=== PATIENT | female | born 1935 | race Two or more races ===

== ENCOUNTER 2025-03-05 20:52 | Inpatient (IN) | payer MEDICARE, OTHER ==
[~2025-03-05] VITALS: Ht 160 cm; Wt 81.7 kg
--- NOTE | 2025-03-05 21:25 | ECG ---
[facility] Test Date: 2025-03-05 Test Time: 21:17:19 Pat Name: MUNA CORONA Department: Room: 0219T Gender: F Pewter Finisher: FABY : 1935 Requested By: LUDIVINA QUILES Order Number: [id number] Reading MD: Crow Meyers Measurements Intervals [place] Rate: 71 P: -47 CT: 180 QRS: 13 QRSD: 106 T: 44 QT: 414 QTc: 450 Interpretive Statements Sinus or ectopic atrial rhythm Multiple premature complexes, vent & supraven Electronically Signed On 03-07-2025 15:26:54 PST by Crow Meyers Please click the below link to view image of tracing.
--- NOTE | 2025-03-05 21:40 | ED.PDOC ---
History of Present Illness HPI Comments 89 y/o obese F presents with son for c/c of left eye vision change. Patient reports on eating dinner and sitting down when she, suddenly, began seeing lavender with lighting-shape patterns in the lower peripheral vision of her left eye for several minutes. Upon arrival to ED, patient comments on symptoms sub siding. No history of similar symptoms in the past. She is asymptomatic at this time. Chief Complaint: Eye Problem Time Seen by MD: 21:30 Reviewed Notes: Nurses Notes, Medications, Allergies Information Source: Patient, Relative (Child) Mode of Arrival: Ambulatory Severity: Moderate Timing: Hours Duration: Minutes Prehospital treatment: None Past Medical History Past Medical History (Other): polymyalgia rheumatica Surgical History: Denies all surgeries POND TENDER History: Denies all POND TENDER Hx Social History Smoker: Non-Smoker Alcohol: Denies ETOH Use Drugs: Denies Drug Use Lives In: Home All Other Systems: Reviewed and Negative (Comprehensive systems review obtained and negative except for what is stated in the HPI.) Physical Exam General Appearance: No Apparent Distress, Obese HEENT: Normal ENT Inspection, Pharynx Normal, TMs Normal Neck: Full Range of Motion, Non-Tender, Normal, Normal Inspection Respiratory: Chest Non-Tender, Lungs Clear, No Accessory Muscle Use, No Respiratory Distress, Normal Breath Sounds Cardiovascular: No Edema, No JVD, No Murmur, No Gallop, Normal Peripheral Pulses, Regular Rate/Rhythm Breast Exam: Deferred Gastrointestinal: No Organomegaly, Non Tender, No Pulsatile Mass, Normal Bowel Sounds, Soft Genitalia: Deferred Pelvic: Deferred Rectal: Deferred Extremities: No calf tenderness, Normal capillary refill, Normal inspection, Normal range of motion, Non-tender, No pedal edema Musculoskeletal : Apperance: Normal Neurologic: Alert, honey processor II-XII nml as Tested, No Motor Deficits, Normal Affect, Normal Mood, No Sensory Deficits Cerebellar Function: Normal Reflexes: Normal Skin: Dry, Normal Color, Warm Lymphatic: No Adenopathy Was a procedure done? Was a procedure done?: No EKG EKG : Pulse Rate (adult): 71 [place]: Normal Cardiac Rhythm: NSR Block: None Hypertrophy: None ST: Normal Differential Dx Considerations may include: TIA, retinal detachment, retinal artery occlusion, retinal vein occlusion, migraine with stroke symptoms, atypical seizures, brain aneurysm, brain mass, intracranial bleed X-Ray, Labs, Meds, VS Vital Signs Date Time Temp Pulse Resp B/P (MAP) Pulse Ox O2 Delivery O2 Flow Rate FiO2 03/05/25 21:40 71 03/05/25 21:17 71 03/05/25 20:55 97.7 75 18 201/101 97 97.7 Lab Test 03/05/25 22:30 03/05/25 21:42 Range/Units Troponin I High Sensitivity 8 6 </=34 ng/L White Blood Count 6.7 4.4-10.8 10^3/uL Red Blood Count 4.57 4.0-5.20 10^6/uL Hemoglobin 14.1 12.2-16.2 g/dL Hematocrit 41.1 36.0-46.0 % Mean Corpuscular Volume 90.0 80.0-100.0 fL Mean Corpuscular Hemoglobin 30.8 28.0-32.0 pg Mean Corpuscular Hemoglobin Concent 34.3 32.0-36.0 g/dL Red Cell Distribution Width 13.3 11.8-14.3 % Platelet Count 256 140-450 10^3/uL Mean Platelet Volume 7.5 6.9-10.8 fL Neutrophils (%) (Auto) 57.7 37.0-80.0 % Lymphocytes (%) (Auto) 34.5 10.0-50.0 % Monocytes (%) (Auto) 6.2 0.0-12.0 % Eosinophils (%) (Auto) 0.9 0.0-7.0 % Basophils (%) (Auto) 0.7 0.0-2.0 % Neutrophils # (Auto) 3.8 1.6-8.6 10 ^3/uL Lymphocytes # (Auto) 2.3 0.4-5.4 10 ^3/uL Monocytes # (Auto) 0.4 0-1.3 10 ^3/uL Eosinophils # (Auto) 0.1 0-0.8 10 ^3/uL Basophils # (Auto) 0 0-0.2 10 ^3/uL Nucleated Red Blood Cells 0.0 % Sodium Level 142 136-145 mmol/L Potassium Level 3.4 L 3.5-5.1 mmol/L Chloride Level 104 98-107 mmol/L Carbon Dioxide Level 30 20-31 mmol/L Anion Gap 8 5-15 Blood Urea Nitrogen 9 9-23 mg/dL Creatinine 0.89 0.550-1.02 mg/dL Glomerular Filtration Rate Calc 62 >90 mL/min BUN/Creatinine Ratio 10.1 10.0-20.0 Serum Glucose 92 74-106 mg/dL Calcium Level 9.6 8.7-10.4 mg/dL [facility] [id number] [place] [id number] Ph: [phone] DIAGNOSTIC IMAGING Diagnostic Imaging Report : [id number] Signed PATIENT: MUNA CORONA ACCT: [id number] UNIT: [id number] : 1935 LOC: ER ROOM / BED: / AGE / SEX: 89 / F ADM STATUS: REG ER SERVICE 31 ORDERING PHYSICIAN: LUDIVINA QUILES MD PROCEDURE(s): HWOCT - HEAD WITHOUT CONTRAST REASON: tia ORDER NUMBER(s): [id number], ACCESSION NUMBER(s): [id number] EXAM: CT HEAD WITHOUT CONTRAST INDICATION: tia TECHNIQUE: CT of the head without intravenous contrast. Radiation Dose Information: CT Dose: CTDI volume is 48.66 mGy. Dose-length product is 778.54 mGy*cm The dose indicators for CT are the volume Computed Tomography (CT) Dose Index (CTDIvol) and the Dose Length Product (DLP), and are measured in units of mGy and mGy-cm, respectively. These indicators are not patient dose, but values generated from the CT scanner acquisition factors. The report includes radiation exposure data for exposures received during this examination. COMPARISON: MR BRAIN W/O on DOS: 02/20/24 FINDINGS: There is no evidence of acute intracranial hemorrhage, extra-axial collection, mass effect, midline shift, herniation or hydrocephalus. The ventricles, sulci and cisterns are age appropriate. The brandt-white differentiation is intact. Patchy periventricular and subcortical white matter hypoattenuation is nonspecific but may be related to small vessel ischemic disease. The visualized paranasal sinuses and mastoid air cells are clear. The surrounding soft tissues and osseous structures are unremarkable. IMPRESSION: No acute intracranial abnormality. ATED BY: TRISHA MONTENEGRO MD DICTATED DATE/TIME: 03/05/252212 SIGNED BY: TRISHA MONTEENGRO MD SIGNED DATE/TIME: 03/05/252212 CC: [place] [id number] Ph: [phone] DIAGNOSTIC IMAGING Diagnostic Imaging Report : [id number] Signed PATIENT: MUNA CORONA ACCT: [id number] UNIT: [id number] : 1935 LOC: ER ROOM / BED: / AGE / SEX: 89 / F ADM STATUS: REG ER SERVICE 31 ORDERING PHYSICIAN: LUDIVINA QUILES MD PROCEDURE(s): CXR1 - CHEST XRAY 1 VIEW REASON: tia ORDER NUMBER(s): [id number], ACCESSION NUMBER(s): [id number] CHEST RADIOGRAPH INDICATION: tia TECHNIQUE: Single frontal view of the chest was obtained COMPARISON: CR CHEST 2 VIEW on DOS: 07/02/23 FINDINGS: Lungs and pleural spaces are clear. Cardiac silhouette and sherly are within lc l limits. Bones and soft tissues demonstrate no significant abnormality. IMPRESSION: No acute disease. ATED BY: TRISHA MONTENEGRO MD DICTATED DATE/TIME: 03/05/252213 SIGNED BY: TRISHA MONTENEGRO MD SIGNED DATE/TIME: 03/05/252213 CC: Time of 1ST Reevaluation: 22:00 Reevaluation 1ST: Resolved Time of 2ND Reevaluation: 23:06 Reevaluation 2ND: Resolved Patient Education/Counseling: Diagnosis, Treatment, Prognosis, Need For Follow Up Family Education/Counseling: Diagnosis, Treatment, Prognosis, Need For Follow Up Comments This is a patient who presents with a momentary and transient visual disturbance of the left eye involving visual field defect and color change. Bedtime she presented her symptoms had completely resolved her cardiac workup in stroke workup were negative. The examination of the eye shows no evidence of hyphema no evidence of cranial nerve abnormalities. I have less suspicion for retinal artery occlusion or retinal vein occlusion have vitreous detachment in retina detachment. These symptoms tend not to be quickly fleeting. I am concerned about TIA. Patient will be admitted for further evaluation and neurology evaluation Additional Information Previous history reviewed: N/A The following tests were ordered, and results were reviewed by me: EKG Additional Information was gathered from interviewing the following independent historians: son I reviewed and agreed with the following test results read by other providers: N/A I discussed treatment and results with medical personnel and: patient and son SEPSIS Sepsis Screen Date sepsis recognized/suspect: Mar 05, 2025 Time Sepsis recognized/suspect: 2100 Recent Procedure: No On Antibiotic Therapy: No Respiratory Rate >20: No Heart Rate >90: No Temp<36 C (96.8 F) or >38.3 C: No SBP <90 or MAP <65 mmHG: No New Acute Mental Status Change: No Is the patient on CPAP, BIPAP,: No Physician Orders Continuous Ekg Monitoring 08,12,16,20,00,04 (03/05/25 21:32) Chest Xray 1 View (03/05/25 21:32) Head Without Contrast (03/05/25 21:32) Troponin-I Hs (03/06/25 00:32) Aspirin Chewable Tablet (03/05/25 21:45) Vital Signs Date Time Temp Pulse Resp B/P (MAP) Pulse Ox O2 Delivery O2 Flow Rate FiO2 03/05/25 21:40 71 03/05/25 21:17 71 03/05/25 20:55 97.7 75 18 201/101 97 97.7 Laboratory Tests Test 03/05/25 21:42 White Blood Count 6.7 10^3/uL (4.4-10.8) Departure 1 Departure Time of Disposition: 23:09 Impression: Primary Impression: TIA (transient ischemic attack) Disposition: ADMITTED INPATIENT Admit to: Tele Condition: Stable Discharged With: Self, Relative Critical Care Note Critical Care Time?: Yes (55 min-critical care time only) Critical care comment: Total critical care time: Approximately 55 minutes Due to a high probability of clinically significant, life threatening deterioration, the patient required my highest level of preparedness to intervene emergently and I personally spent this critical care time directly and personally managing the patient. This critical care time included obtaining a history; examining the patient; pulse oximetry; ordering and review of studies; arranging urgent treatment with development of a management plan; evaluation of patient's response to treatment; frequent reassessment; and, discussions with other providers. This critical care time was performed to assess and manage the high probability of imminent, life-threatening deterioration that could result in multi-organ failure. It was exclusive of separately billable procedures and treating other patients. Stability Stability form required: No Heart Score Heart Score: Heart Score Response (Comments) Value History N/A 0 EKG N/A 0 Age N/A 0 Risk Factors N/A 0 Troponin N/A 0 Total 0 I personally scribed for LUDIVINA QUILES MD ([email or web address]) on 03/05/25 at 21:40. Electronically submitted by Samir Mcgregor ([email or web address]). I personally scribed for LUDIVINA QUILES MD ([email or web address]) on 03/05/25 at 22:50. Electronically submitted by Samir Mcgregor ([email or web address]). LUDIVINA QUILES MD Mar 05, 2025 21:40
[2025-03-05 22:01] LABS: Hematocrit 41.1 % (36.0-46.0); Hemoglobin 14.1 g/dL (12.2-16.2); Mean Corpuscular Hemoglobin 30.8 pg (28.0-32.0); Mean Corpuscular Volume 90.0 fL (80.0-100.0); Nucleated Red Blood Cells % 0.0 %
[2025-03-05 22:10] LABS: Chloride 104 mmol/L (98-107); Sodium 142 mmol/L (136-145)
[2025-03-05 22:11] LABS: Anion Gap 8 (5-15); Carbon Dioxide 30 mmol/L (20-31)
[2025-03-05 22:12] LABS: Calcium 9.6 mg/dL (8.7-10.4)
--- NOTE | 2025-03-05 22:16 | DVH ---
CHEST RADIOGRAPH INDICATION: tia TECHNIQUE: Single frontal view of the chest was obtained COMPARISON: CR CHEST 2 VIEW on DOS: 07/02/23 FINDINGS: Lungs and pleural spaces are clear. Cardiac silhouette and sherly are within normal limits. Bones and soft tissues demonstrate no significant abnormality. IMPRESSION: No acute disease.
--- NOTE | 2025-03-05 22:16 | DVH ---
EXAM: CT HEAD WITHOUT CONTRAST INDICATION: tia TECHNIQUE: CT of the head without intravenous contrast. Radiation Dose Information: CT Dose: CTDI volume is 48.66 mGy. Dose-length product is 778.54 mGy*cm The dose indicators for CT are the volume Computed Tomography (CT) Dose Index (CTDIvol) and the Dose Length Product (DLP), and are measured in units of mGy and mGy-cm, respectively. These indicators are not patient dose, but values generated from the CT scanner acquisition factors. The report includes radiation exposure data for exposures received during this examination. COMPARISON: MR BRAIN W/O on DOS: 02/20/24 FINDINGS: There is no evidence of acute intracranial hemorrhage, extra-axial collection, mass effect, midline shift, herniation or hydrocephalus. The ventricles, sulci and cisterns are age appropriate. The brandt-white differentiation is intact. Patchy periventricular and subcortical white matter hypoattenuation is nonspecific but may be related to small vessel ischemic disease. The visualized paranasal sinuses and mastoid air cells are clear. The surrounding soft tissues and osseous structures are unremarkable. IMPRESSION: No acute intracranial abnormality.
[2025-03-05 22:17] LABS: BUN/Creatinine Ratio 10.1 (10.0-20.0); Glucose 92 mg/dL (74-106)
[2025-03-05 22:18] LABS: Blood Urea Nitrogen 9 mg/dL (9-23); Potassium 3.4 mmol/L (3.5-5.1)
[2025-03-06 01:15] VITALS: PULSE 64; RESP 13; O2SAT 99
[2025-03-06] MEDS: LABETALOL INJECTION 250 MG in SODIUM CHL 0.9% 200 ML IV ONE (01:49)
[2025-03-06] MEDS: LABETALOL HCL 20 MG/4 ML VL IV ONE (01:50)
[2025-03-06] MEDS: LABETALOL HCL 5 MG/ML ML 20ML VIAL IV ONE (01:50)
[2025-03-06] MEDS: NITROGLYCERIN 50MG/250ML 250 ML IV ONE (02:10)
[2025-03-06] MEDS ORDERED: ACETAMINOPHEN 325 MG TAB PO PRN (03:00)
[2025-03-06 03:08] LABS: Urine Protein, UAD Negative (Negative)
--- NOTE | 2025-03-06 03:09 | DVHHP2 ---
History of Present Illness History of Present Illness An 89-year-old female with past medical history of polymyalgia rheumatica and previously unrecognized hypertension presented with transient left-sided visual changes described as dimming of vision with light-shaped and lavender-colored visual disturbances, which improved prior to arrival. On presentation, she was found to have markedly elevated blood pressure with diastolic predominance. Initial treatment with clonidine and IV labetalol was ineffective, prompting initiation of a nitroglycerin infusion with subsequent blood pressure improvement. She was not on antihypertensive therapy at home and denies prior diagnosis of hypertension. No recurrence of visual changes since blood pressure control. PMHx: Polymyalgia rheumatica, hypertension (new diagnosis) PSHx: Cholecystectomy, appendectomy, hysterectomy Social History: Lives at home, denies tobacco, alcohol, or illicit drug use ROS: Negative except as noted in HPI Review of Systems Allergies: Coded Allergies: Morphine (Unverified Allergy, Unknown, 03/06/25) Penicillins (Unverified Allergy, Unknown, 03/06/25) Medications Current Medications Medications Dose Ordered Sig/Eladio Route Start Time Stop Time Status Last Admin Dose Admin Acetaminophen 650 mg Q6HP PRN PO 03/06/25 03:00 Enoxaparin Sodium 40 mg DAILY SC 03/06/25 10:00 Losartan Potassium 100 mg DAILY PO 03/06/25 03:00 Hydralazine HCl 25 mg Q12HR PO 03/06/25 03:00 Nifedipine 90 mg DAILY PO 03/06/25 03:00 Exam Vital Signs Vital Signs Date Time Temp Pulse Resp B/P (MAP) Pulse Ox O2 Delivery O2 Flow Rate FiO2 03/06/25 02:10 186/80 03/06/25 02:00 59 03/06/25 01:15 13 99 Room Air* 0 21 03/06/25 01:04 98.9 98.9 Exam Vitals: BP improving on nitroglycerin infusion, HR 66, afebrile, SpO? >90% on room air General: No acute distress HEENT: PERRLA, EOMI CV: Regular rate and rhythm Respiratory: Clear bilaterally Abdomen: Soft, non-tender Neuro: Alert and oriented, no focal deficits Extremities: No edema Labs/Xrays Labs Test 03/06/25 02:49 03/05/25 22:30 03/05/25 21:42 Range/Units Urine Color Colorless Yellow Urine Clarity Clear Clear Urine pH 7.0 5.0-9.0 Urine Specific [place] 1.009 1.001-1.035 Urine Protein Negative Negative Urine Ketones Trace Negative Urine Blood Trace H Negative /uL Urine Nitrite Negative Negative Urine Bilirubin Negative Negative Urine Urobilinogen Normal Negative mg/dL Urine Leukocyte Esterase Negative Negative /uL Urine RBC 4 0 - 4 /hpf Urine Microscopic WBC < 1 0-5 /HPF Urine Squamous Epithelial Cells Few <5 /hpf Urine Bacteria None seen None Seen /hpf Urine Glucose Normal Normal mg/dL Troponin I High Sensitivity 8 </=34 ng/L White Blood Count 6.7 4.4-10.8 10^3/uL Red Blood Count 4.57 4.0-5.20 10^6/uL Hemoglobin 14.1 12.2-16.2 g/dL Hematocrit 41.1 36.0-46.0 % Mean Corpuscular Volume 90.0 80.0-100.0 fL Mean Corpuscular Hemoglobin 30.8 28.0-32.0 pg Mean Corpuscular Hemoglobin Concent 34.3 32.0-36.0 g/dL Red Cell Distribution Width 13.3 11.8-14.3 % Platelet Count 256 140-450 10^3/uL Mean Platelet Volume 7.5 6.9-10.8 fL Neutrophils (%) (Auto) 57.7 37.0-80.0 % Lymphocytes (%) (Auto) 34.5 10.0-50.0 % Monocytes (%) (Auto) 6.2 0.0-12.0 % Eosinophils (%) (Auto) 0.9 0.0-7.0 % Basophils (%) (Auto) 0.7 0.0-2.0 % Neutrophils # (Auto) 3.8 1.6-8.6 10 ^3/uL Lymphocytes # (Auto) 2.3 0.4-5.4 10 ^3/uL Monocytes # (Auto) 0.4 0-1.3 10 ^3/uL Eosinophils # (Auto) 0.1 0-0.8 10 ^3/uL Basophils # (Auto) 0 0-0.2 10 ^3/uL Nucleated Red Blood Cells 0.0 % Sodium Level 142 136-145 mmol/L Potassium Level 3.4 L 3.5-5.1 mmol/L Chloride Level 104 98-107 mmol/L Carbon Dioxide Level 30 20-31 mmol/L Anion Gap 8 5-15 Blood Urea Nitrogen 9 9-23 mg/dL Creatinine 0.89 0.550-1.02 mg/dL Glomerular Filtration Rate Calc 62 >90 mL/min BUN/Creatinine Ratio 10.1 10.0-20.0 Serum Glucose 92 74-106 mg/dL Calcium Level 9.6 8.7-10.4 mg/dL SEPSIS Sepsis Screen Date sepsis recognized/suspect: Mar 06, 2025 Time Sepsis recognized/suspect: 114 Recent Procedure: No On Antibiotic Therapy: No Respiratory Rate >20: No Heart Rate >90: No Temp<36 C (96.8 F) or >38.3 C: No SBP <90 or MAP <65 mmHG: No New Acute Mental Status Change: No Is the patient on CPAP, BIPAP,: No Physician Orders Continuous Ekg Monitoring 08,12,16,20,00,04 (03/05/25 21:32) Chest Xray 1 View (03/05/25:32) Head Without Contrast (03/05/25 21:32) Nitroglycerin 50mg/250ml (Tridil) (03/06/25 02:00) Admit (03/06/25 02:56) Code Status (03/06/25 02:56) Vital Signs .PER UNIT PROTOCOL (03/06/25 02:56) Review Orders With Adm. (03/06/25 02:56) Consistent Carb([facility])Diabetes (03/06/25 Breakfast) Acetaminophen Tablet (Tylenol Tablet) (03/06/25 03:00) Notify Md Of Changes From Base (03/06/25 02:56) Advance Directive (03/06/25 02:56) Patient Condition (03/06/25 02:56) Allergies (03/06/25 02:56) Enoxaparin Sodium (Lovenox) (03/06/25 10:00) Oxygen By Nasal Cannula (03/06/25 02:56) Stat Ekg For Chest Pain (03/06/25 02:56) Notify Md Of Changes From Base (03/06/25 02:56) Senior Financial Reporting Accountant For 24 Hours (03/06/25 02:56) Emergency Dysrhythmia Protocol (03/06/25 02:56) Rhythm Strips Once Every Shift (03/06/25 02:56) Losartan Tablet (Cozaar Tablet) (03/06/25 03:00) Hydralazine Hcl Tablet (Apresoline Table (03/06/25 03:00) Nifedipine Er (Procardia Xl (Time-Releas (03/06/25 03:00) Vital Signs Date Time Temp Pulse Resp B/P (MAP) Pulse Ox O2 Delivery O2 Flow Rate FiO2 03/06/25 02:10 186/80 03/06/25 02:00 59 186/80 03/06/25 01:49 62 208/95 03/06/25 01:15 64 13 99 Room Air* 0 21 03/06/25 01:04 98.9 74 18 223/104 (143) 96 98.9 03/05/25 21:40 71 03/05/25 21:17 71 03/05/25 20:55 97.7 75 18 201/101 97 97.7 Laboratory Tests Test 03/05/25 21:42 White Blood Count 6.7 10^3/uL (4.4-10.8) Medications Medications Dose Ordered Sig/Eladio Route Start Time Stop Time Status Last Admin Dose Admin Aspirin 162 mg ONCE ONCE PO 03/05/25 21:45 03/06/25 01:22 DC 03/06/25 01:57 162 MG Labetalol HCl 250 mg/Sodium Chloride 250 ml @ 60 mls/hr Q4H10M ONCE IV 03/06/25 01:30 03/06/25 01:56 DC 03/06/25 01:49 60 MLS/HR Nitroglycerin 250 ml @ 1.5 mls/hr Q24H ONCE IV 03/06/25 02:00 03/07/25 01:59 03/06/25 02:10 1.5 MLS/HR Assessment/Plan Assessment/Plan #Hypertensive emergency Managed with nitroglycerin infusion for blood pressure control; ICU admission for continuous monitoring while on IV antihypertensive therapy; initiation of oral regimen with hydralazine 25 mg PO q12h, nifedipine and losartan; gradual weaning of nitroglycerin as tolerated with close BP monitoring; CT head without acute findings, EKG without ischemic changes, troponins negative. #Hypokalemia Oral potassium replacement with repeat CMP to ensure correction. #Polymyalgia rheumatica Stable, no acute flare; continue outpatient management without steroid escalation. Case discussed with Dr Strickland Full code Plan discussed with: Patient, Other (rn) My Orders Orders - GLENNY LOMAS Procedure Category Date Status Time Admit ADMIT 03/06/25 Transmitted 02:56 Code Status CODE 03/06/25 Transmitted 02:56 Vital Signs [facility] 03/06/25 In Process 02:56 Review Orders With [facility] 03/06/25 In Process Adm. 02:56 Consistent DIET 03/06/25 Transmitted Carb(Ccho)Diabetes Breakfast Acetaminophen Tablet [facility] 03/06/25 In Process (Tylenol Tablet) 03:00 Notify Md Of Changes [facility] 03/06/25 In Process From Base 02:56 Advance Directive [facility] 03/06/25 In Process 02:56 Patient Condition ORDERS 03/06/25 Transmitted 02:56 Allergies [facility] 03/06/25 In Process 02:56 Enoxaparin Sodium PHA 03/06/25 In Process (Lovenox) 10:00 Oxygen By Nasal RT 03/06/25 Transmitted Cannula 02:56 Stat Ekg For Chest [facility] 03/06/25 In Process Pain 02:56 Notify Md Of Changes [facility] 03/06/25 In Process From Base 02:56 Senior Financial Reporting Accountant For [facility] 03/06/25 In Process 24 Hours 02:56 Emergency Dysrhythmia [facility] 03/06/25 In Process Protocol 02:56 Rhythm Strips Once [facility] 03/06/25 In Process Every Shift 02:56 Losartan Tablet [facility] 03/06/25 In Process (Cozaar Tablet) 03:00 Hydralazine Hcl PHA 03/06/25 In Process Tablet (Apresoline 03:00 Nifedipine Er PHA 03/06/25 In Process (Procardia Xl 03:00 Date of Service: Mar 06, 2025 Billing Provider: AMAN STRICKLAND MD Common Visit Codes: 98081-FORLPUJ INP/OBS CARE (HIGH) Secondary Visit Codes: 08108-ECMHLOQB CARE PLAN 30 MINUTES GLENNY LOMAS Mar 06, 2025 03:09
[2025-03-06] MEDS: LOSARTAN POTASSIUM 50 MG TAB PO SCH (03:30)
[2025-03-06] MEDS: POTASSIUM CHL 20 Meq TABLET PO ONE (03:55)
[2025-03-06 05:08] LABS: Hematocrit 39.1 % (36.0-46.0); Hemoglobin 13.2 g/dL (12.2-16.2); Mean Corpuscular Hemoglobin 30.2 pg (28.0-32.0); Mean Corpuscular Volume 89.4 fL (80.0-100.0); Nucleated Red Blood Cells % 0.1 %
[2025-03-06 05:23] LABS: Alanine Aminotransferase 11 U/L (7-40); Albumin 3.8 g/dL (3.2-4.8); Alkaline Phosphatase 78 U/L (46-116); Anion Gap 7 (5-15); BUN/Creatinine Ratio 15.9 (10.0-20.0); Bilirubin, Total 0.4 mg/dL (0.2-1.0); Blood Urea Nitrogen 11 mg/dL (9-23); Calcium 8.9 mg/dL (8.7-10.4); Carbon Dioxide 30 mmol/L (20-31); Chloride 105 mmol/L (98-107); Glucose 104 mg/dL (74-106); Potassium 3.4 mmol/L (3.5-5.1); Sodium 142 mmol/L (136-145); Total Protein 6.3 g/dL (5.7-8.2)
[2025-03-06 07:26] VITALS: PULSE 66; RESP 16; O2SAT 95
[2025-03-06] MEDS: ENOXAPARIN SOD 40 MG/0.4 ML SYRINGE SC SCH (09:44)
--- NOTE | 2025-03-06 14:12 | DVHSR ---
APPROVED REPORT EXAM: Two-dimensional and M-mode echocardiogram with Doppler and color Doppler. Blood Pressure: 123/63 mmHg INDICATION Hypertensive emergency RISK FACTORS Height: 5'2", Weight: 171 DIMENSIONS LVDd 3.9 (3.8-5.7cm) LA (2D) 4.6 (1.9-4.0cm) Aortic Root 3.2 (2.0-3.7cm) LVDs 2.5 (2.5-4.0cm) LA (MM) (1.9-4.0cm) Aortic Cusp Exc 1.6 (1.5-2.0cm) EF (%) 60.0 (55-70%) Rt. Atrium 3.7 (1.9-4.0cm) Asc. Aorta cm IVSd 0.9 (0.7-1.1cm) RV (D) 3.7 (1.8-2.4cm) PWd 0.8 (0.7-1.1cm) Mitral Valve Mitral Mitral Stenosis E wave 1.09m/s MV Mean GR. 3mmHg A wave 1.13m/s MV Peak GR. 7mmHg E/A ratio 1.0 2D MVA cm2 DECEL Time 330ms PRESS 1/2 Time 105ms IVRT ms Dop MVA 2.10cm2 Aortic Valve Aortic Valve Aortic Stenosis V1 1.30m/s AO Mean GR. 6mmHg V2 1.57m/s AO Peak GR. 10mmHg LVOT Diameter 1.7 (1.8-2.4cm) Doppler [place] 1.88cm2 Tricuspid Valve TR Velocity 2.84m/s RVSP 35mmHg Other Information Technically limited study due to body habitus. Conclusion Left ventricle: The cavity size is normal. Systolic function is normal. The ejection fraction is 55-60%. Diastolic function is normal. Right ventricle: Systolic function is normal. Estimated RVSP 35 mm Hg Mitral valve: There is mild calcification of posterior leaflet. There is no stenosis. There is trace regurgitation. Aortic valve: The valve is tricuspid. There is sclerosis but no stenosis. There is no regurgitation. Tricuspid valve: There is mild regurgitation. There is no stenosis. Pulmonic valve: There is no regurgitation. Pericardium: There is no pericardial effusion. Inferior vena cava: The vessel is normal in size. There is normal respiratory phasic variation consistent with a right atrial pressure of3 mm of mercury.
[2025-03-06] MEDS: CITALOPRAM HYDROBR 20 MG TAB PO ONE (15:00)
[2025-03-06 15:59] VITALS: PULSE 69
[2025-03-06 16:54] VITALS: BP 125/69; PULSE 67; RESP 16; TEMP 98.1; O2SAT 95
[2025-03-06] MEDS ORDERED: CITA-73 PO (17:37)
[2025-03-06] MEDS ORDERED: THEO400T8 PO (17:37)
[2025-03-06] MEDS ORDERED: APOA10CA PO (17:37)
[2025-03-06 20:00] VITALS: PULSE 75; RESP 17; O2SAT 97
[2025-03-06 21:00] VITALS: BP 117/62; PULSE 68; RESP 18; TEMP 97.8; O2SAT 97
[2025-03-07] VITALS (9 sets, daily range): BP systolic 101–130; BP diastolic 59–68; PULSE 58–72; RESP 14–18; TEMP 97.5–98.8; O2SAT 94–97
--- NOTE | 2025-03-07 10:15 | DVHPN2 ---
Progress Note Date Seen: Mar 07, 2025 Medical Necessity Reason Pt with a Central, PICC or Fol: No Subjective Patient reports: No new complaints Review of Systems: HEENT:Normal, CVS:Normal, RESPIRATORY:Normal, GI:Normal, :Normal, MSK:Normal, NEURO:Normal Objective vital signs Vital Sign Date Time Temp Pulse Resp B/P (MAP) Pulse Ox O2 Delivery O2 Flow Rate FiO2 03/07/25 09:00 98.3 66 15 112/63 (79) 94 98.3 03/06/25 20:00 Room Air* 0 21 Total Intake and Output 03/06/25 03/06/25 03/07/25 14:59 22:59 06:59 Intake Total 250 ml 600 ml Balance 250 ml 600 ml medications Current Medications Medications Dose Ordered Sig/Eladio Route Start Time Stop Time Status Last Admin Dose Admin Acetaminophen 650 mg Q6HP PRN PO 03/06/25 03:00 Enoxaparin Sodium 40 mg DAILY SC 03/06/25 10:00 03/06/25 09:44 40 MG Losartan Potassium 100 mg DAILY PO 03/06/25 03:00 03/06/25 13:41 100 MG Hydralazine HCl 25 mg Q12HR PO 03/06/25 03:00 03/06/25 13:41 25 MG Nifedipine 90 mg DAILY PO 03/06/25 03:00 03/06/25 13:42 90 MG Examination: GENERAL:Normal, HEENT:Normal, NECK:Normal, LUNGS:Normal, CVS:Normal, ABDOMEN:Normal, MSK:Normal, SKIN:Normal, NEURO:Normal, :Normal laboratory and microbiology Laboratory Tests 03/06/25 04:55 Test 03/06/25 04:55 Range/Units Serum Glucose 104 74-106 mg/dL Problem List/Assessment/Plan Problem List/Assessment/Plan #1 hypertensive urgency: adjust meds #2 asthma: check miya level #3 depression advance care planning- full code- time spent 18 mins Plan discussed with: Patient Date of Service: Mar 07, 2025 Billing Provider: ANNELISE MONDRAGON MD Common Visit Codes: [id number] INP/OBS CARE(HIGH) Secondary Visit Codes: [id number] CARE PLAN 30 MINUTES ANNELISE MONDRAGON MD Mar 07, 2025 10:15
[2025-03-07] MEDS: LOSARTAN POTASSIUM 50 MG TAB PO SCH (11:41)
[2025-03-08] VITALS (7 sets, daily range): BP systolic 104–145; BP diastolic 46–97; PULSE 59–83; RESP 16–20; TEMP 97.5–98.2; O2SAT 94–97
[2025-03-08 07:56] LABS: Potassium 3.8 mmol/L (3.5-5.1); Sodium 143 mmol/L (136-145)
[2025-03-08 07:57] LABS: Anion Gap 7 (5-15); Carbon Dioxide 28 mmol/L (20-31)
[2025-03-08 07:58] LABS: Calcium 8.9 mg/dL (8.7-10.4)
[2025-03-08 08:02] LABS: BUN/Creatinine Ratio 18.3 (10.0-20.0); Blood Urea Nitrogen 13 mg/dL (9-23); Chloride 108 mmol/L (98-107); Glucose 88 mg/dL (74-106)
[2025-03-08] MEDS ORDERED: LOSA-534 PO (10:20)
--- NOTE | 2025-03-08 10:20 | DVHDS2 ---
Discharge Summary Date of Admission Mar 06, 2025 at 02:56 Date of Discharge: Mar 08, 2025 Labs/Diagnostic Data: Laboratory Results Test 03/08/25 07:02 03/07/25 13:43 03/06/25 04:55 03/06/25 02:49 Sodium Level 143 mmol/L (136-145) Potassium Level 3.8 mmol/L (3.5-5.1) Chloride Level 108 mmol/L (98-107) Carbon Dioxide Level 28 mmol/L (20-31) Anion Gap 7 (5-15) Blood Urea Nitrogen 13 mg/dL (9-23) Creatinine 0.71 mg/dL (0.550-1.02) Glomerular Filtration Rate Calc 81 mL/min (>90) BUN/Creatinine Ratio 18.3 (10.0-20.0) Serum Glucose 88 mg/dL (74-106) Calcium Level 8.9 mg/dL (8.7-10.4) Theophylline Level < 2 ug/mL (10-20) White Blood Count 7.4 10^3/uL (4.4-10.8) Red Blood Count 4.38 10^6/uL (4.0-5.20) Hemoglobin 13.2 g/dL (12.2-16.2) Hematocrit 39.1 % (36.0-46.0) Mean Corpuscular Volume 89.4 fL (80.0-100.0) Mean Corpuscular Hemoglobin 30.2 pg (28.0-32.0) Mean Corpuscular Hemoglobin Concent 33.8 g/dL (32.0-36.0) Red Cell Distribution Width 13.2 % (11.8-14.3) Platelet Count 235 10^3/uL (140-450) Mean Platelet Volume 7.4 fL (6.9-10.8) Neutrophils (%) (Auto) 61.3 % (37.0-80.0) Lymphocytes (%) (Auto) 30.5 % (10.0-50.0) Monocytes (%) (Auto) 6.3 % (0.0-12.0) Eosinophils (%) (Auto) 1.1 % (0.0-7.0) Basophils (%) (Auto) 0.8 % (0.0-2.0) Neutrophils # (Auto) 4.5 10 ^3/uL (1.6-8.6) Lymphocytes # (Auto) 2.3 10 ^3/uL (0.4-5.4) Monocytes # (Auto) 0.5 10 ^3/uL (0-1.3) Eosinophils # (Auto) 0.1 10 ^3/uL (0-0.8) Basophils # (Auto) 0.1 10 ^3/uL (0-0.2) Nucleated Red Blood Cells 0.1 % Total Bilirubin 0.4 mg/dL (0.2-1.0) Aspartate Amino Transferase (AST) 20 U/L (13-40) Alanine Aminotransferase (ALT) 11 U/L (7-40) Alkaline Phosphatase 78 U/L (46-116) Total Protein 6.3 g/dL (5.7-8.2) Albumin 3.8 g/dL (3.2-4.8) Urine Color Colorless (Yellow) Urine Clarity Clear (Clear) Urine pH 7.0 (5.0-9.0) Urine Specific [place] 1.009 (1.001-1.035) Urine Protein Negative (Negative) Urine Ketones Trace (Negative) Urine Blood Trace /uL (Negative) Urine Nitrite Negative (Negative) Urine Bilirubin Negative (Negative) Urine Urobilinogen Normal mg/dL (Negative) Urine Leukocyte Esterase Negative /uL (Negative) Urine RBC 4 /hpf (0 - 4) Urine Microscopic WBC < 1 /HPF (0-5) Urine Squamous Epithelial Cells Few /hpf (<5) Urine Bacteria None seen /hpf (None Seen) Urine Glucose Normal mg/dL (Normal) Test 03/05/25 22:30 Troponin I High Sensitivity 8 ng/L (</=34) Other Laboratory Tests 03/08/25 07:02 03/06/25 04:55 Brief Hx & Hospital Course: see dictated note Condition at Discharge: Good Final Diagnosis/Problems List htn Discharge Disposition: Home Discharge Instruct/Medications Diet: Cardiac 2g Na,low cholest Activity: No Restrictions, As Tolerated Follow Up/Referral: fu with pcp in 1 wk Medications: resume home meds script to pharmacy Scheduled Citalopram Hydrobromide (Citalopram Hydrobromide), 40 MG PO DAILY, (Reported) Losartan Potassium (Losartan Potassium), 50 MG PO DAILY Theophylline (Theophylline ER), 800 MG PO DAILY, (Reported) Miscellaneous Medications Apoaequorin (Prevagen), 10 MG PO, (Reported) Discharge Statement: "Patient was advised to return to the ER or call 911 if any headaches, dizziness, shortness of breath, chest pain, abdominal pain, bleeding, fevers, or worsening of medical condition. Patient was counseled about treatment plan, medications, possible side effects, patientverbalized understanding. All questions were answered to the best of my ability. This discharge took greater then 30 minutes in planning, reviewing documentation, counseling the patient, and discussing with other team members." ASSESSMENT ASSESSMENT Assessment htn Date of Service: Mar 08, 2025 Billing Provider: ANNELISE MONDRAGON MD Common Visit Codes: 18308-VTJ/OBS DISCH DAY >30min ANNELISE MONDRAGON MD Mar 08, 2025 10:20
--- NOTE | 2025-03-08 10:49 | DVHDS ---
DATE OF DISCHARGE: 03/08/2025 HISTORY OF PRESENT ILLNESS: The patient is an 89-year-old lady who is admitted after she had visual changes and elevated blood pressure. The patient has history of polymyalgia rheumatica and asthma. HOSPITAL COURSE: The patient had a CT of head that showed no acute abnormality. A chest x-ray was unremarkable. The patient had elevated blood pressure of 223/104 at the time of admission. The patient was started on blood pressure medications. The patient's blood pressure is now controlled. She will be discharged home to receive her home medications as well as to be on losartan 50 mg daily. Her theophylline level was also within normal limits. FINAL DIAGNOSES: * Hypertensive urgency. * Asthma. * Polymyalgia rheumatica. * Depression. Also stated that the patient also had an echocardiogram that showed ejection fraction of 55% to 60%. Time spent in discharge planning and review of plan with the patient and nursing was 39 minutes. The patient will be ambulated prior to discharge. MD DANIELLE Sin/MARILIA TID: [id number] RECEIPT: [id number]
== END 2025-03-08 16:27 | disposition home or self-care (01) | DRG 305 ==
LOC: ER 20:52 → OVERFLOW 03-06 02:56 → TELE-CENTR 03-06 15:55
PROVIDERS: ADMIT Internal Medicine; ATTEND Internal Medicine
DX: I16.1 Hypertensive emergency (principal); E66.9 Obesity, unspecified; J45.909 Unspecified asthma, uncomplicated; M35.3 Polymyalgia rheumatica; F32.A Depression, unspecified; I10 Essential (primary) hypertension; E87.6 Hypokalemia; Z79.899 Other long term (current) drug therapy; Z90.49 Acquired absence of other specified parts of digestive tract; Z90.710 Acquired absence of both cervix and uterus; Z88.0 Allergy status to penicillin; Z88.5 Allergy status to narcotic agent; Z68.30 Body mass index [BMI] 30.0-30.9, adult
CPT/HCPCS: 36415; 70450; 71045; 80048; 80053; 80198; 81001; 84484; 85025; 93005; 93306; 99291; G0378